=== PATIENT | female | born 1970 | race Caucasian/White ===

== ENCOUNTER 2016-11-05 19:58 | Emergency (ER) | payer OTHER ==
[2016-11-05 20:04] VITALS: BP 136/80; PULSE 85; RESP 16; TEMP 97.5; O2SAT 98
[2016-11-05] MEDS ORDERED: PROPARACAINE 0.5% 15 ML OPHT DROP ONE (20:17)
[2016-11-05] MEDS ORDERED: FLUORESCEIN SODIUM 1 MG STRIP OP ONE ×2 (20:20→20:39)
[2016-11-05] MEDS ORDERED: PROPARACAINE 0.5% 15 ML OPHT DROP LEFTEYE ONE (20:39)
[2016-11-05] MEDS ORDERED: GENTAMICIN 0.3% DROPS PREPACK OPHT.BTL TAKEHOME ONE (20:41)
--- NOTE | 2016-11-05 20:41 | EDPHY ---
H & P Time Seen by Provider: 11/05/16 20:13 HPI/ROS: CHIEF COMPLAINT: Left eye irritation and pain HISTORY OF PRESENT ILLNESS: Patient presents with 2 days of left eye irritation and pain with some left eyelid edema. Possible foreign body sensation with Froedtert, or a stick. No contact lenses. REVIEW OF SYSTEMS: No fever chills and no eye discharge PAST MEDICAL HISTORY: Lyme disease Social history: Primary care in [place] General Appearance: Alert, no distress. Visual acuity: noted from nursing notes. 20/30 each, and 20/25 both. Lids and Lashes: Mild left upper lid edema, everted with no foreign body seen. Conjunctivae: Not injected, no exudate. Sclera: No subconjunctival hemorrhage, no icterus. Pupils: Equal and round, normally reactive. Corneas: Left examined with fluoroscein, horizontal corneal abrasion across the pupil 3 mm seen with slitlamp.Negative Jaqui test with fluoroscein. No foreign body on surface of cornea. Anterior chamber: normal, no hyphema or hypopyon. External: No proptosis, no periorbital swelling or redness or tenderness. Emergency Department course/MDM: Patient presents with corneal abrasion but no foreign body. Gentamicin ophthalmic drops. Patient is also asking for a referral for " parasitology" specialist. Patient also relates an unrelated to her eye problem of history of several months of mild urinary incontinence with coughing or sneezing and is referred to Urology. Smoking Status: Never smoked Constitutional: Initial Vital Signs Temperature (C) 36.4 C 11/05/16 20:01 Heart Rate 85 11/05/16 20:01 Respiratory Rate 16 11/05/16 20:01 Blood Pressure 136/80 H 11/05/16 20:01 O2 Sat (%) 98 11/05/16 20:01 O2 Delivery Mode Room Air Allergies/Adverse Reactions: ziprasidone HCl [From Geodon] Allergy (Verified 11/05/16 20:01) ziprasidone mesylate [From Geodon] Allergy (Verified 11/05/16 20:01) Home Medications: Medication Instructions Recorded NK [No Known Home Meds] 11/05/16 MDM/Departure - MDM Medications Given: Discontinued Medications Fluorescein Sodium (Uhdxi-G-Pavdh) 1 mg OP EDNOW ONE Stop: 11/05/16 20:40 Last Admin: 11/05/16 20:40 Dose: 1 mg Proparacaine HCl (Alcaine 0.5%) 1 drops LEFTEYE ONCE ONE Stop: 11/05/16 20:40 Last Admin: 11/05/16 20:41 Dose: 2 drop - Depart Disposition: Home, Routine, Self-Care Clinical Impression: Corneal abrasion Qualifiers: Encounter type: initial encounter Laterality: left Qualified Code(s): S05.02XA - Injury of conjunctiva and corneal abrasion without foreign body, left eye, initial encounter Condition: Good Instructions: Corneal Abrasion (ED) Additional Instructions: Antibiotic eyedrops 2 to the left eye every 4 hours while awake for the next 3 days. Please return for worsening or severe pain or any decrease in vision. Referrals: SUNIL JAMA [Other] - As per Instructions Hayden Monahan MD [Medical Doctor] - 2-3 days, if not improved (aviation technical systems specialist referral) Xavi Mathew MD [Medical Doctor] - As per Instructions (urology referral for your urinary issues) Donovan Gao MD [Medical Doctor] - As per Instructions (referral for parasitology questions as requested)
== END 2016-11-05 21:03 | disposition home or self-care (01) ==
DX: S05.02XA Injury of conjunctiva and corneal abrasion without foreign body, left eye, initial encounter (principal); X58.XXXA Exposure to other specified factors, initial encounter

== ENCOUNTER 2016-11-10 10:07 | Emergency (ER) | payer OTHER ==
[2016-11-10 10:17] VITALS: RESP 16
--- NOTE | 2016-11-10 11:09 | EDPHY ---
H & P Stated Complaint: headache, left ear pain since 4 am today Time Seen by Provider: 11/10/16 10:19 HPI/ROS: CHIEF COMPLAINT: Ear pain HISTORY OF PRESENT ILLNESS: The patient is a 46 year old female presenting with left ear pain that woke her from sleep at 4am. She states her ear is "doing a strange echoing things". The patient reports cold like symptoms for the past few days. She was seen here 5 days with a corneal abrasion. Patient is concerned her symptoms are related to lengthy exposure to mold and possible parasites. No fever, chills, chest pain, shortness of breath, palpitations, vomiting, diarrhea, urinary complaints, headache, lightheadedness. REVIEW OF SYSTEMS: Aside from elements discussed in the HPI, a comprehensive 10-point review of systems was reviewed and is negative. PAST MEDICAL HISTORY:Chronic inflammatory response syndrome. SOCIAL HISTORY: Cigarettes smoker. Homeless. VITAL SIGNS: Reviewed by me GENERAL: Well-developed, well-nourished, resting comfortably in no respiratory distress. HEENT: Atraumatic. No mastoid tenderness. Eyes: No icterus, no injection. Mouth: moist mucous membranes. No erythema or lesions. Neck: supple with no adenopathy. Ears: Left TM bulging, erythematous with vesicle on ear drum, discharge against the ear drum. Right TM is normal. LUNGS: Clear to auscultation bilaterally, no wheezes, rhonchi or rales. CARDIAC: Regular rate and rhythm, no rubs, murmurs or gallops. ABDOMEN: Soft, nontender, nondistended, bowel sounds normal. BACK: No CVA tenderness. EXTREMITIES: No trauma. No edema. Range of motion is normal throughout. NEURO: Alert and oriented, grossly nonfocal. SKIN: Warm and dry, no rash. PSYCHIATRIC: Normal mentation, no agitation. Portions of this note were transcribed by a medical underwriter. I personally performed a history, physical exam, medical decision making, and confirmed accuracy of information the transcribed note. - Personal History LMP (Females 10-55): Unknown - Medical/Surgical History Hx Asthma: No Hx Chronic Respiratory Disease: No Hx Diabetes: No Hx Cardiac Disease: No Hx Renal Disease: No Hx Cirrhosis: No Hx Alcoholism: No Hx HIV/AIDS: No Hx Splenectomy or Spleen Trauma: No Other PMH: lyme disease. mental health issues. mold sensitive - Social History Smoking Status: Current every day smoker Constitutional: Initial Vital Signs Temperature (C) 37.0 C 11/10/16 10:15 Heart Rate 79 11/10/16 10:15 Respiratory Rate 16 11/10/16 10:15 Blood Pressure 117/76 11/10/16 10:15 O2 Sat (%) 97 11/10/16 10:15 O2 Delivery Mode Room Air Allergies/Adverse Reactions: morphine Allergy (Verified 11/11/16 13:38) ziprasidone HCl [From Geodon] Allergy (Verified 11/11/16 13:38) ziprasidone mesylate [From Geodon] Allergy (Verified 11/11/16 13:38) Home Medications: Medication Instructions Recorded AZITHROMYCIN [Z-PACK] 250 - 500 mg PO DAILY #6 tab 11/10/16 Neomy Sulf/Polymyx B Sulf/Hc 3 - 4 drops OT TID #1 otic.btl 11/11/16 [Cortisporin Otic Suspension] Medical Decision Making ED Course/Re-evaluation: I discussed possible antibiotics for the patient. She is concerned about Penicillin containing mold. I will start her on Azithromycin. Patient was also given information regarding mjoo-hhm-[id number] medications to use for her symptom complex. Differential Diagnosis: Differential diagnosis for the patient's primary complaint was considered including but not limited to otitis media, otitis externa, foreign body, perforated tympanic membrane. - Data Points Medications Given: Discontinued Medications Ibuprofen (Motrin) 600 mg PO EDNOW ONE Stop: 11/10/16 11:17 Last Admin: 11/10/16 11:24 Dose: 600 mg Departure - Departure Disposition: Home, Routine, Self-Care Clinical Impression: Left otitis media, Ear pain, left, Headache Condition: Good Instructions: Otitis Media (ED) Additional Instructions: Please take full course of Azithromycin as directed. Stay well hydrated. Followup with your ear, nose, and throat specialist or the referred ENT next week for a recheck of your symptoms. Referrals: Lynda Cooper MD [Medical Doctor] - As per Instructions (Ear, nose, throat specialist) Prescriptions: AZITHROMYCIN [Z-PACK] 250 - 500 mg PO DAILY #6 tab Report Scribed for: Deb Gordon Report Scribed by: Skye Call Date of Report: 11/10/16 Time of Report: 11:09
[2016-11-10] MEDS ORDERED: IBUPROFEN 600 MG TAB PO ONE (11:16)
[2016-11-10 11:26] VITALS: BP 115/70; PULSE 68; TEMP 97.7; O2SAT 98
== END 2016-11-10 11:33 | disposition home or self-care (01) ==
LOC: EDUNIT#
DX: H66.92 Otitis media, unspecified, left ear (principal); R51 Headache; F17.210 Nicotine dependence, cigarettes, uncomplicated

== ENCOUNTER 2016-11-11 13:35 | Emergency (ER) | payer OTHER ==
[2016-11-11 13:43] VITALS: BP 100/63; PULSE 95; RESP 12; TEMP 98.6; O2SAT 97
--- NOTE | 2016-11-11 13:47 | EDPHY ---
H & P Stated Complaint: Bilateral Ear pain, sinus. Seen Yesterday, started Kevin HPI/ROS: CHIEF COMPLAINT: Right ear pain. HISTORY OF PRESENT ILLNESS: The patient is a 46 year old female, seen yesterday by myself, who comes to the ED with right ear pain. I saw the patient yesterday for left ear pain and started her on Azithromycin. The patient returns today with pain in her right ear now. She states she filled the antibiotic. She has not taken any over the counter decongestants. She denies fever, chills, chest pain, shortness of breath, palpitations, vomiting, diarrhea, urinary complaints , headache, lightheadedness. REVIEW OF SYSTEMS: Aside from elements discussed in the HPI, a comprehensive 10-point review of systems was reviewed and is negative. PAST MEDICAL HISTORY: Chronic inflammatory response syndrome. SOCIAL HISTORY: Cigarette smoker. VITAL SIGNS: Reviewed by me GENERAL: Well-developed, well-nourished, resting comfortably in no respiratory distress. HEENT: No sinus tenderness. Eyes: PERRL, EOMI. No icterus, no injection. Ears: Right TM erythematous and bulging. Left TM is worse than right, it is erythematous and bulging. Debris in external auditory canal. Mouth: moist mucous membranes. No erythema or lesions. Neck: supple with no adenopathy. No meningismus. Negative Kernig's. Negative Brudzinski's. Portions of this note were transcribed by a esthetician and manager medical spa. I personally performed a history, physical exam, medical decision making, and confirmed accuracy of information the transcribed note. - Personal History LMP (Females 10-55): Over 28 Days Ago Current Tetanus/Diphtheria Vaccine: Unsure Current Tetanus Diphtheria and Acellular Pertussis (TDAP): Unsure - Medical/Surgical History Hx Asthma: No Hx Chronic Respiratory Disease: No Hx Diabetes: No Hx Cardiac Disease: No Hx Renal Disease: No Hx Cirrhosis: No Hx Alcoholism: No Hx HIV/AIDS: No Hx Splenectomy or Spleen Trauma: No Other PMH: lyme disease. mental health issues. mold sensitive - Social History Smoking Status: Current every day smoker Constitutional: Initial Vital Signs Temperature (C) 37.0 C 11/11/16 13:39 Heart Rate 95 11/11/16 13:39 Respiratory Rate 12 11/11/16 13:39 Blood Pressure 100/63 11/11/16 13:39 O2 Sat (%) 97 11/11/16 13:39 O2 Delivery Mode Room Air Allergies/Adverse Reactions: morphine Allergy (Verified 11/11/16 13:38) ziprasidone HCl [From Geodon] Allergy (Verified 11/11/16 13:38) ziprasidone mesylate [From Geodon] Allergy (Verified 11/11/16 13:38) Home Medications: Medication Instructions Recorded AZITHROMYCIN [Z-PACK] 250 - 500 mg PO DAILY #6 tab 11/10/16 Neomy Sulf/Polymyx B Sulf/Hc 3 - 4 drops OT TID #1 otic.btl 11/11/16 [Cortisporin Otic Suspension] Medical Decision Making ED Course/Re-evaluation: I repeated the patients HEENT exam. Right ear appears erythematous. Left TM is improving slightly from yesterday, however with a small amount of debris in the external auditory canal. Patient was instructed to continue her azithromycin, take Flonase as well for decongestant, and was given Cortisporin otic drops to use as well. Differential Diagnosis: Differential diagnosis for the patient's primary complaint was considered including but not limited to otitis media, otitis externa, foreign body, perforated tympanic membrane. - Data Points Medications Given: Discontinued Medications Ibuprofen (Motrin) 600 mg PO EDNOW ONE Stop: 11/11/16 13:59 Last Admin: 11/11/16 13:59 Dose: 600 mg Departure - Departure Disposition: Home, Routine, Self-Care Clinical Impression: Left otitis externa Qualifiers: Otitis externa type: unspecified type Chronicity: acute Qualified Code(s): H60.502 - Unspecified acute noninfective otitis externa, left ear Right otitis media Qualifiers: Otitis media type: unspecified Chronicity: unspecified Qualified Code(s): H66.91 - Otitis media, unspecified, right ear Left otitis media Qualifiers: Otitis media type: unspecified Chronicity: unspecified Qualified Code(s): H66.92 - Otitis media, unspecified, left ear Condition: Good Instructions: Otitis Media (ED), Otitis Externa (ED) Additional Instructions: #1. Continue your Azithromycin as directed. #2. Mainstay of therapy will be to drink plenty of fluids, control your symptoms with vsoa-egj-[id number] medications, and get plenty of rest. #3. If you have a fever, use Tylenol or ibuprofen. You may take both at the same time if needed. Adult Pain & Fever Control: We recommend Acetaminophen (Tylenol) and Ibuprofen (Motrin, Advil) for pain and fever control. When fever is high or pain severe, both drugs can be used at the same time, but at different intervals. Please note the time differences. Your dose is: Acetaminophen [650-1000]mg every 4 to 6 hours Ibuprofen [600]mg every [8] hours with food. #4. If you have a runny nose, take an antihistamine. #5. If you are congested, take a decongestant like Flonase. #6. If you have a sore throat, take Tylenol, or ibuprofen. Throat lozenges, throat sprays, or salt water gargles may also be helpful. #7. Use the ear drops as directed in both ears. #8. Return to the Emergency department or seek care urgently if your symptoms are worsening despite the above treatment, if you develop shortness of breath, if you're unable to drink fluids secondary to throat pain or other issues, to have vomiting, diarrhea, or other concerns. Referrals: SUNIL JAMA [Other] - As per Instructions Prescriptions: Neomy Sulf/Polymyx B Sulf/Hc [Cortisporin Otic Suspension] 3 - 4 drops OT TID # 1 otic.btl Report Scribed for: Deb Gordon Report Scribed by: Skye Call Date of Report: 11/11/16 Time of Report: 14:01
[2016-11-11] MEDS ORDERED: IBUPROFEN 600 MG TAB PO ONE ×2 (13:57→13:58)
== END 2016-11-11 14:10 | disposition home or self-care (01) ==
DX: H60.502 Unspecified acute noninfective otitis externa, left ear (principal); H66.93 Otitis media, unspecified, bilateral; F17.210 Nicotine dependence, cigarettes, uncomplicated

== ENCOUNTER 2016-11-12 12:20 | Emergency (ER) | payer OTHER ==
[2016-11-12] MEDS ORDERED: FLUORESCEIN SODIUM 1 MG STRIP OP ONE ×3 (12:26→12:33)
[2016-11-12] MEDS ORDERED: PROPARACAINE 0.5% 15 ML OPHT DROP ONE (12:27)
[2016-11-12] MEDS ORDERED: NEOMYCIN/POLYMYX B/HC SUSP 10 ML OTIC.BTL OT ONE (12:30)
[2016-11-12] MEDS ORDERED: ACETAMINOPHEN 500 MG TAB PO ONE (12:31)
[2016-11-12] MEDS ORDERED: PROPARACAINE 0.5% 15 ML OPHT DROP EACHEYE ONE (12:33)
--- NOTE | 2016-11-12 12:35 | EDPHY ---
H & P Stated Complaint: EAR PAIN HPI/ROS: CHIEF COMPLAINT: Year pain HISTORY OF PRESENT ILLNESS: Patient is a 46-year-old female who [facility] by EMS [facility] complaining of left ear pain and discharge. She has had the symptoms for 3 days. She states that she had eye discharge last week and was started on eyedrops neomycin. 2 days ago she was started on a Z-Bruce for sinus congestion. Now she is complaining of ear pressure and discharge. no hearing changes. No fevers. No headache. No neck pain. REVIEW OF SYSTEMS: Constitutional: See HPI EENTM: See HPI Respiratory: denies: cough, shortness of breath Cardiac: denies: chest pain, irregular heart rate, lightheadedness, palpitations Gastrointestinal/Abdominal: denies: abdominal pain, diarrhea, nausea, vomiting, blood streaked stools Genitourinary: denies: dysuria, frequency, hematuria, pain Musculoskeletal: denies: joint pain, muscle pain Skin: denies: lesions, rash, jaundice, bruising Neurological: denies: headache, numbness, paresthesia, tingling, dizziness, weakness Hematologic/Lymphatic: denies: blood clots, easy bleeding, easy bruising Immunologic/allergic: denies: HIV/AIDS, transplant EXAM: GENERAL: Well-appearing, well-nourished and in no acute distress. HEAD: Atraumatic, normocephalic. EYES: Pupils equal round and reactive to light, extraocular movements intact, sclera anicteric, conjunctiva are normal. Cornea visualized with floricine and negative. ENT: Left ear with otitis externa. Not closed., nares patent, oropharynx clear without exudates. Moist mucous membranes. NECK: Normal range of motion, supple without lymphadenopathy or JVD. LUNGS: Breath sounds clear to auscultation bilaterally and equal. No wheezes rales or rhonchi. HEART: Regular rate and rhythm without murmurs, rubs or gallops. ABDOMEN: Soft, nontender, normoactive bowel sounds. No guarding, no rebound. No masses appreciated. BACK: No CVA tenderness, no spinal tenderness, step-offs or deformities EXTREMITIES: Normal range of motion, no pitting or edema. No clubbing or cyanosis. NEUROLOGICAL: Cranial nerves II through XII grossly intact. Normal speech, normal gait. 5/5 strength, normal movement in all extremities, normal sensation PSYCH: Normal mood, normal affect. SKIN: Warm, dry, normal turgor, no visible rashes or lesions. Source: Patient, EMS Exam Limitations: No limitations - Personal History Current Tetanus/Diphtheria Vaccine: Unsure - Medical/Surgical History Hx Asthma: No Hx Chronic Respiratory Disease: No Hx Diabetes: No Hx Cardiac Disease: No Hx Renal Disease: No Hx Cirrhosis: No Hx Alcoholism: No Hx HIV/AIDS: No Hx Splenectomy or Spleen Trauma: No Other PMH: lyme disease. mental health issues. mold sensitive - Family History Significant Family History: No pertinent family hx - Social History Smoking Status: Current every day smoker Alcohol Use: Sober Drug Use: None Constitutional: Initial Vital Signs Temperature (C) 36.8 C 11/12/16 12:24 Heart Rate 96 11/12/16 12:24 Respiratory Rate 16 11/12/16 12:24 Blood Pressure 127/65 H 11/12/16 12:24 O2 Sat (%) 97 11/12/16 12:24 O2 Delivery Mode Room Air Allergies/Adverse Reactions: morphine Allergy (Verified 11/11/16 13:38) ziprasidone HCl [From Geodon] Allergy (Verified 11/11/16 13:38) ziprasidone mesylate [From Geodon] Allergy (Verified 11/11/16 13:38) Home Medications: Medication Instructions Recorded AZITHROMYCIN [Z-PACK] 250 - 500 mg PO DAILY #6 tab 11/10/16 Neomy Sulf/Polymyx B Sulf/Hc 3 - 4 drops OT TID #1 otic.btl 11/11/16 [Cortisporin Otic Suspension] Medical Decision Making - Diagnostics Imaging: Results: CT scan of the head was obtained. The results of the study are negative for abscess or malignant otitis, chronic sinusitis and fluid in middle ear. The study was read by Dr. Mari. I viewed the images myself on the PACS system. ED Course/Re-evaluation: The patient has otitis externa. She is already on Augmentin and was recently on neomycin eyedrops. I will start her on Cortisporin ear drops. We discussed follow-up with her primary doctor. She understands this plan. She is requesting pain medication. She took ibuprofen earlier today with moderate improvement. Will start Tylenol. After reviewing the patient's chart she has been here for the last 2 days with similar complaints. She has already been started on antibiotic ear drops. She is on Augmentin and is also since been prescribed Flonase congestion. She has had continued symptoms. I will obtain a CT scan to out malignant otitis. The patient's head CT is reassuring. We will continue treatment with oral antibiotics, drops and nasal decongestants. The patient understands and agrees with this plan. Differential Diagnosis: Partial list of the Differential diagnosis considered include but were not limited to; otitis externa, otitis media, cerumen impaction, shingles and although unlikely based on the history and physical exam, I also considered malignant otitis, meningitis, sinusitis. I discussed these differential diagnoses and the plan with the patient as well as the usual and expected course. The patient understands that the diagnosis is provisional and that in medicine we are not always correct and that further workup is often warranted. Usual and customary warnings were given. All of the patient's questions were answered. The patient was instructed to return to the emergency department should the symptoms at all worsen or return, otherwise to followup with the physician as we discussed. - Data Points Medications Given: Discontinued Medications Acetaminophen (Tylenol) 1,000 mg PO EDNOW ONE Stop: 11/12/16 12:32 Last Admin: 11/12/16 12:46 Dose: Not Given Fluorescein Sodium (Phabm-H-Jmppe) 1 mg OP EDNOW ONE Stop: 11/12/16 12:34 Last Admin: 11/12/16 12:34 Dose: 1 mg Neomycin/Polymyxin/Hydrocortisone (Cortisporin Otic Suspension) 3 drops OT EDNOW ONE PRN Reason: Protocol Stop: 11/12/16 12:31 Last Admin: 11/12/16 12:46 Dose: Not Given Proparacaine HCl (Alcaine 0.5%) 1 drops EACHEYE ONCE ONE Stop: 11/12/16 12:34 Last Admin: 11/12/16 12:34 Dose: 1 drop Departure - Departure Disposition: Home, Routine, Self-Care Clinical Impression: Otitis externa Qualifiers: Otitis externa type: unspecified type Laterality: left Chronicity: acute Qualified Code(s): H60.502 - Unspecified acute noninfective otitis externa, left ear Condition: Fair Instructions: Otitis Externa (ED) Additional Instructions: Use the ear drops 2 drops every 6 hours in left ear. Referrals: Daina Tesfaye DO [Doctor of Osteopathy] - As per Instructions
[2016-11-12] MEDS ORDERED: IBUPROFEN 200 MG TAB PO ONE (13:38)
[2016-11-12 13:53] VITALS: BP 122/74; PULSE 89; RESP 20; TEMP 97.7; O2SAT 95
== END 2016-11-12 13:54 | disposition home or self-care (01) ==
LOC: EDUNIT#
DX: H60.502 Unspecified acute noninfective otitis externa, left ear (principal); F17.200 Nicotine dependence, unspecified, uncomplicated

== ENCOUNTER 2016-11-15 03:13 | Emergency (ER) | payer OTHER ==
[2016-11-15 03:29] VITALS: O2SAT 95
--- NOTE | 2016-11-15 04:00 | EDPHY ---
H & P Stated Complaint: ear and jaw pain seen here 4 days ago HPI/ROS: HPI CHIEF COMPLAINT: Ear pain HISTORY OF PRESENT ILLNESS: This patient very pleasant 38-year-old female presents emergency room by EMS from the group home this is her 4th ER visit she was seen on 11/10, 11/11, 11/12 and now today she was diagnosed with ear infection initially of her left ear than of her right ear and then otitis externa she was initially placed on azithromycin, Augmentin, Flonase and Cortisporin, I did review the previous 3 ER charts, also reviewed the CT scan of her head showed no evidence of malignant otitis, however there was middle ear effusions on both ears, and acute maxillary sinusitis as well as partial opacification of the mastoid air cells bilaterally, no evidence of abscess Patient presents back to the emergency room for a 4th ER visit she does not appear toxic she has no fever she is not vomiting. Her main complaint tonight is anterior maxillary sinus pain and pressure. She denies chest pain or shortness of breath. She tells me she was never started on Augmentin she did complete her azithromycin she does have a prescription for Flonase that she did get filled and is using it once per day and has ear drops. She states now her maxillary sinuses are hurting her she has a dull ache in her maxillary sinuses. Denies fever, cough, chest pain shortness of breath. She tells me she has a follow-up ENT point min on Monday with her personal Ear Nose and Throat doctor at [facility]. 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 She does tell me she has been taking ibuprofen for pain gets minimal relief maybe an hour to 2 hours relief. She has no stiff neck, no neck pain, no headache. Past Medical History: History multi [facility], sinusitis Past Surgical History: denies recent surgical history Social History: Smokes tobacco, denies drugs or alcohol, staying at the group home Family History: Noncontributory ROS REVIEW OF SYSTEMS: A comprehensive 10 point review of systems is otherwise negative aside from elements mentioned in the history of present illness. Exam Constitutional triage nursing summary reviewed, vital signs reviewed, awake/ alert. Eyes normal conjunctivae and sclera, EOMI, PERRLA. HENT bilateral TMs are erythematous with disc bulging, ear canals are clear, posterior pharynx is normal, no redness no exudate no swelling, no submandibular lymphadenopathy she does have tenderness palpation over the maxillary sinuses bilaterally, there is no mastoid tenderness, no mastoid air 50 hemo or inflammation visualize, atraumatic, moist mucus membranes, no epistaxis, neck supple/ no meningismus, no raccoon eyes. Respiratory clear to auscultation bilaterally, normal breath sounds, no respiratory distress, no wheezing. Cardiovascular rate normal, regular rhythm, no murmur, no edema, distal pulses normal. Gastrointestinal soft, non-tender, no rebound, no guarding, normal bowel sounds, no distension, no pulsatile mass. Genitourinary no CVA tenderness. Musculoskeletal no midline vertebral tenderness, full range of motion, no calf swelling, no tenderness of extremities, no meningismus, good pulses, neurovascularly intact. Skin pink, warm, & dry, no rash, skin atraumatic. Neurologic awake, alert and oriented x 3, AAOx3, moves all 4 extremities equally, motor intact, sensory intact, CN II-XII intact, normal cerebellar, normal vision, normal speech. Psychiatric normal mood/affect. Heme/Lymph/Immune no lymphadenopathy. Differential Diagnosis: Includes but is not limited to in a particular order acute sinusitis, viral syndrome, upper respiratory tract infection, bilateral otitis media, mastoiditis Medical Decision Making: This patient appears well nontoxic as maxillary anterior sinus pain I did review her recent ER charts as well as CT scan or CT scan did show acute sinusitis. I will place her on Augmentin for a longer course of antibiotics as she just completed azithromycin, also will place her on Decadron for inflammation and pain control as well as a short dose of [place]. She is agreeable for this. She understands return emergency room if she has worsening symptoms includes worsening pain, fever, vomiting. She should also follow up with her Ear Nose and Throat doctor on Monday as previously arranged. Re-evaluation: 419: patient is fine with Augmentin 1st dose here, [place] 1st dose here, Decadron 1st dose here. Prescription given for Augmentin 7 days twice daily [place] limited supply for acute pain control Decadron for inflammatory response. She does understand return ER if worsening symptoms also follow up with her ENT doctor. Source: Patient - Personal History LMP (Females 10-55): Over 28 Days Ago Current Tetanus/Diphtheria Vaccine: Unsure Current Tetanus Diphtheria and Acellular Pertussis (TDAP): Unsure - Medical/Surgical History Hx Asthma: No Hx Chronic Respiratory Disease: No Hx Diabetes: No Hx Cardiac Disease: No Hx Renal Disease: No Hx Cirrhosis: No Hx Alcoholism: No Hx HIV/AIDS: No Hx Splenectomy or Spleen Trauma: No Other PMH: lyme disease. mental health issues. mold sensitive - Social History Smoking Status: Current every day smoker Constitutional: Initial Vital Signs Temperature (C) 37 C 11/15/16 03:26 Heart Rate 84 11/15/16 03:26 Respiratory Rate 18 11/15/16 03:26 Blood Pressure 118/64 11/15/16 03:26 O2 Sat (%) 95 11/15/16 03:26 O2 Delivery Mode Room Air Allergies/Adverse Reactions: morphine Allergy (Verified 11/11/16 13:38) ziprasidone HCl [From Geodon] Allergy (Verified 11/11/16 13:38) ziprasidone mesylate [From Geodon] Allergy (Verified 11/11/16 13:38) Home Medications: Medication Instructions Recorded AZITHROMYCIN [Z-PACK] 250 - 500 mg PO DAILY #6 tab 11/10/16 Neomy Sulf/Polymyx B Sulf/Hc 3 - 4 drops OT TID #1 otic.btl 11/11/16 [Cortisporin Otic Suspension] Amoxicillin/Clavulanate Pot 875 mg PO BID #14 tab 11/15/16 [Augmentin 875 MG TAB (*)] Dexamethasone [Decadron 4 MG (*)] 4 mg PO DAILY #4 tab 11/15/16 Guaifenesin [Guaifenesin ER] 600 mg PO BID #14 tab.er.12h 11/15/16 Hydrocodone/APAP 5/325 [[place] 1 - 2 tab PO Q4H PRN #10 tab 11/15/16 5/325 (*)] Departure - Departure Disposition: Home, Routine, Self-Care Clinical Impression: Acute sinusitis Qualifiers: Sinusitis location: frontal Recurrence: recurrent Qualified Code(s): J01.11 - Acute recurrent frontal sinusitis Condition: Good Instructions: Sinusitis (ED) Additional Instructions: 1. Please follow up with her ENT doctor. 2. return emergency room if you have any worsening symptoms questions or concerns. 3. Take antibiotic as prescribed. Take her steroids as prescribed. Referrals: [facility] [Other] - As per Instructions Shannan Blair MD [Medical Doctor] - As per Instructions Prescriptions: Amoxicillin/Clavulanate Pot [Augmentin 875 MG TAB (*)] 875 mg PO BID #14 tab Dexamethasone [Decadron 4 MG (*)] 4 mg PO DAILY #4 tab Guaifenesin [Guaifenesin ER] 600 mg PO BID #14 tab.er.12h Hydrocodone/APAP 5/325 [[place] 5/325 (*)] 1 - 2 tab PO Q4H PRN #10 tab PRN Reason: Pain, Moderate
[2016-11-15] MEDS ORDERED: HYDROCODONE/APAP 5/325 TAB PO ONE (04:19)
[2016-11-15] MEDS ORDERED: DEXAMETHASONE 4 MG TAB PO ONE (04:19)
[2016-11-15] MEDS ORDERED: AMOXICILLIN/CLAVULANATE POT 875/125 MG TAB PO ONE (04:19)
[2016-11-15 04:34] VITALS: BP 121/70; PULSE 71; RESP 16; TEMP 98.6
== END 2016-11-15 04:33 | disposition home or self-care (01) ==
LOC: EDUNIT#
DX: J01.11 Acute recurrent frontal sinusitis (principal); F17.200 Nicotine dependence, unspecified, uncomplicated